=== PATIENT | female | born 1995 | race Caucasian/White ===

== ENCOUNTER 2018-10-04 15:06 | Inpatient (IN) | payer OTHER, BC ==
[2018-10-04 16:09] LABS: ABS Lymphocytes 1.5 10^3/ul (1.0-4.8); ABS Monocytes 0.7 10^3/ul (0-0.8); ABS Neutrophils 4.7 10^3/ul (1.5-7.7); Eosinophil % 0.5 %; Hematocrit 40 % (35-47); Hemoglobin 13.7 g/dL (12.0-16.0); Lymphocyte % 21.9 %; Mean Corpuscular HGB Conc 34 g/dL (31-36); Mean Corpuscular Hemoglobin 29 pg (27-31); Mean Corpuscular Volume 84 fL (80-97); Mean Platelet Volume 7.3 fL (7.4-10.4); Nucleated Red Blood Cells % 0.1; Platelet Count 364 10^3/uL (150-450); Red Blood Count 4.79 10^6 /uL (3.70-4.87); Red Cell Distribution Width 14 % (10-15)
[2018-10-04 16:34] LABS: ALT 13 U/L (7-52); AST 12 U/L (13-39); Albumin 4.4 g/dL (3.2-5.2); Albumin/Globulin Ratio 1.3 (1-3); Alkaline Phosphatase 80 U/L (34-104); Anion Gap 8 mmol/L (2-11); Blood Urea Nitrogen 8 mg/dL (6-24); CO2 Carbon Dioxide 24 mmol/L (22-32); Calcium 9.7 mg/dL (8.6-10.3); Chloride 104 mmol/L (101-111); EGFR African American 107.6 (>60); EGFR Non-African American 88.9 (>60); Globulin 3.4 g/dL (2-4); Glucose 89 mg/dL (70-100); Potassium 4.1 mmol/L (3.5-5.0); Sodium 136 mmol/L (135-145); Total Protein 7.8 g/dL (6.4-8.9)
[2018-10-04 16:39] LABS: Urine Appearance Cloudy; Urine Bacteria 1+ (Absent); Urine Bilirubin Negative (Negative); Urine Blood Negative (Negative); Urine Color Amber; Urine Glucose Negative (Negative); Urine Ketones Trace (Negative); Urine Nitrite Negative (Negative); Urine Protein Negative (Negative); Urine Red Blood Cell 2+(6-10/hpf) (Absent); Urine Specific Gravity 1.028 (1.010-1.030); Urine Squamous Epithelial Cell Present (Absent); Urine Urobilinogen Negative (Negative); Urine White Blood Cell 2+(11-20/hpf) (Absent)
--- NOTE | 2018-10-04 16:40 | ED ---
Psychiatric Complaint - HPI Summary HPI Summary: This patient is a 23 year old F presenting to [facility] with a chief complaint of suicide ideation since 2 weeks ago. Patient came to the ED because her therapist said she should come to ED due to having suicidal thoughts. She states that she tried to cut herself 8 months ago. She notes that she has not felt stable for a couple of weeks and has been in and out of hospitals for her whole life. She was last admitted to psychiatric unit as an adolescent. Patient does not have any family or friends in the area. The patient rates the pain 0/ 10 in severity. Symptoms aggravated by nothing. Symptoms alleviated by nothing. Patient denies any fever, chills, erythema of eyes, sore throat, CP, SOB, cough , abdominal pain, N/V, dysuria, hematuria, myalgia, edema, rash, or dizzines. Patient does not do drugs or drink alcohol. Patient takes Klonopin, Vraylar, Prozac, Junel for control, Spironolactone. Patient takes melatonin and Benadryl to sleep. - History Of Current Complaint Chief Complaint: EDSuicidal Time Seen by Provider: 10/04/18 15:30 Hx Obtained From: Patient Onset/Duration: Sudden Onset, Lasting Weeks - 2, Still Present Timing: Weeks - 2 Character: Depressed Aggravating Factor(s): Nothing Alleviating Factor(s): Nothing Has Suicidal: Reports: Thoughts, Demonstrates Gesture - attempted to cut herself 8 months ago - Allergies/Home Medications Allergies/Adverse Reactions: Allergies Allergy/AdvReac Type Severity Reaction Status Date / Time amoxicillin Allergy Unknown Verified 10/04/18 15:28 Reaction Details azithromycin Allergy Unknown Verified 10/04/18 15:28 Reaction Details clavulanic acid Allergy Unknown Verified 10/04/18 15:28 [From Augmentin] Reaction Details dog dander Allergy Unknown Verified 10/04/18 15:28 Reaction Details pine nut Allergy Unknown Verified 10/04/18 15:28 Reaction Details cats Allergy Unknown Uncoded 07/25/18 14:41 Reaction Details lavander Allergy Unknown Uncoded 07/25/18 14:41 Reaction Details Home Medications: Home Medications Cariprazine (NF) [Vraylar (Nf)] 3 mg PO DAILY 10/04/18 [History Confirmed ] Norethindrone/Eth Est 1.5/30NF [Junel 1.5/30 (NF)] 1 tab PO DAILY 10/04/18 [ History Confirmed 10/04/18] PMH/Surg Hx/FS Hx/Imm Hx Previously Healthy: No Endocrine/Hematology History: Denies: Hx Diabetes Cardiovascular History: Denies: Hx Hypertension History: Denies: Hx Renal Disease Sensory History: Denies: Hx Deafness EENT History: Denies: Hx Deafness Psychiatric History: Reports: Hx Suicide Attempt - attempted to cut herself 8 months ago - Surgical History Surgical History: None Infectious Disease History: No Infectious Disease History: Denies: Traveled Outside the [place] in Last 30 Days - Family History Known Family History: Positive: Cardiac Disease - mother has arrhythmias - Social History Alcohol Use: None Hx Substance Use: No Substance Use Type: Reports: None Hx Tobacco Use: No Smoking Status (MU): Never Smoked Tobacco Do You Chew or Dip Tobacco: No Have You Chewed or Dipped Tobacco in the LAST YEAR: No Have You Smoked in the Last Year: No Review of Systems Negative: Fever, Chills Negative: Erythema Negative: Sore Throat Negative: Chest Pain Negative: Shortness Of Breath, Cough Negative: Abdominal Pain, Vomiting, Nausea Negative: dysuria, hematuria Negative: Myalgia, Edema Negative: Rash Neurological: Other - negative - dizziness Psychological: Other - positive - suicidal thoughts All Other Systems Reviewed And Are Negative: Yes Physical Exam - Summary Physical Exam Summary: Constitutional: Well-developed, Well-nourished, Alert. (-) Distressed Skin: Old superficial abrasions to both wrists, warm, Dry HENT: Normocephalic; Atraumatic Eyes: Conjunctiva normal Neck: Musculoskeletal ROM normal neck. (-) JVD, (-) Stridor, (-) Tracheal deviation Cardio: Rhythm regular, rate normal, Heart sounds normal; Intact distal pulses; The pedal pulses are 2+ and symmetric. Radial pulses are 2+ and symmetric. (-) Murmur Pulmonary/Chest wall: Effort normal. (-) Respiratory distress, (-) Wheezes, (-) Rales Abd: Soft, (-) tenderness, (-) Distension, (-) Guarding, (-) Rebound Musculoskeletal: (-) Edema Lymph: (-) Cervical adenopathy Neuro: Alert, Oriented x3 Psych: Mood and affect Normal Triage Information Reviewed: Yes Vital Signs On Initial Exam: Initial Vitals Temp Pulse Resp BP Pulse Ox 98.1 F 97 16 129/81 98 10/04/18 15:25 10/04/18 15:25 10/04/18 15:25 10/04/18 15:25 10/04/18 15:25 Vital Signs Reviewed: Yes Diagnostics - Vital Signs Vital Signs Temp Pulse Resp BP Pulse Ox 10/04/18 15:25 98.1 F 97 16 129/81 98 - Laboratory Lab Results: Lab Results 10/04/18 Range/Units 16:00 WBC 7.0 (3.5-10.8) 10^3/uL RBC 4.79 (3.70-4.87) 10^6 /uL Hgb 13.7 (12.0-16.0) g/dL Hct 40 (35-47) % MCV 84 (80-97) fL MCH 29 (27-31) pg MCHC 34 (31-36) g/dL RDW 14 (10-15) % Plt Count 364 (150-450) 10^3/uL MPV 7.3 L (7.4-10.4) fL Neut % (Auto) 67.4 % Lymph % (Auto) 21.9 % [place] % (Auto) 9.9 % Eos % (Auto) 0.5 % Baso % (Auto) 0.3 % Absolute Neuts (auto) 4.7 (1.5-7.7) 10^3/ul Absolute Lymphs (auto) 1.5 (1.0-4.8) 10^3/ul Absolute Monos (auto) 0.7 (0-0.8) 10^3/ul Absolute Eos (auto) 0.0 (0-0.6) 10^3/ul Absolute Basos (auto) 0.0 (0-0.2) 10^3/ul Absolute Nucleated RBC 0.0 10^3/ul Nucleated RBC % 0.1 Result Diagrams: 10/04/18 16:00 10/04/18 16:00 Lab Statement: Any lab studies that have been ordered have been reviewed, and results considered in the medical decision making process. Re-Evaluation - Re-Evaluation First Eval Re-Evaluation Time: 15:40 Comment: patient is clear for mental reeval Course/Dx - Course Course Of Treatment: This patient is a 23 year old F presenting to [facility] with a chief complaint of suicide since 2 weeks ago. Patient came to the ED because her therapist said she should come to ED due to having suicidal thoughts. She states that she tried to cut herself 8 months ago. She notes that she has not felt stable for a couple of weeks and has been in and out of hospital for her whole life. She was last admitted to the hospital as an adolescent. Patient does not have any family or friends in the area. The patient rates the pain 0/ 10 in severity. Symptoms aggravated by nothing. Symptoms alleviated by nothing. Patient denies any fever, chills, erythema of eyes, sore throat, CP, SOB, cough , abdominal pain, N/V, dysuria, hematuria, myalgia, edema, rash, or dizzines. Patient does not do drugs or drink alcohol. Patient takes Klonopin, Vraylar, Prozac, Junel for control, Spironolactone. Patient takes melatonin and Benadryl to sleep. Physical exam shows old superficial abrasions to both wrists. Lab results show MPV 7.3, AST 12, urine ketones trace A, Ur leukocyte esterase 2+ A, urine WBC (auto) 2+ A, urine RBC (auto) 2+ A, Ur squamous epith cells present A, urine bacteria 1+ A. During the ED course, the patient was given Bactrim. Final diagnosis is suicidal ideation. Patient's case reviewed by [facility] worker reports at 1841 patient will be admitted to [facility] psych. - Differential Dx/Clinical Impression Provider Diagnosis: Suicidal ideation - Physician Notifications Discussed Care Of Patient With: Butch Baca Time Discussed With Above Provider: 18:41 Instructed by Provider To: Other - Patient's case reviewed by [facility] worker reports at 1841 patient will be admitted to [facility] psych. Discharge - Sign-Out/Discharge Documenting (check all that apply): Patient Departure - admit All imaging exams completed and their final reports reviewed: No Studies - Discharge Plan Condition: Stable Disposition: PSYCHIATRIC FACILITY-[facility] - Attestation Statements Document Initiated by Scribe: Yes Documenting Scribe: Anderson Cox Provider For Whom Scribe is Documenting (Include Credential): Dr. Mike Desai MD Scribe Attestation: IAnderson and Nick Cox, scribed for Dr. Mike Desai MD on 10/04/18 at 1924. Status of Scribe Document: Ready
[2018-10-04 16:41] LABS: Acetaminophen < 15 mcg/mL; Alcohol < 10 mg/dL (<10); Salicylate < 2.50 mg/dL (<30)
[2018-10-04 16:56] LABS: TSH (Thyroid Stimulating Horm) 1.44 mcIU/mL (0.34-5.60)
[2018-10-04 17:04] LABS: Urine Benzodiazepine Screen None Detected (None Detect); Urine Opiates Screen None Detected (None Detect)
[2018-10-04] MEDS: Sulfamethox/Trimethoprim DS 800/160* TAB PO ONE ×2 (21:32→22:06)
[2018-10-04] MEDS ORDERED: Al Hydrox/Mg Hydrox/Simet LIQ* 30 ML UDC PO PRN (22:02)
[2018-10-04] MEDS: Acetaminophen TAB* 325 MG PO PRN (22:33)
[2018-10-04] MEDS: clonazePAM TAB(*) 0.5 MG PO PRN (22:33)
[2018-10-05] MEDS ORDERED: Albuterol HFA INHALER* 8 gm MDI INH PRN (00:16)
[2018-10-05] MEDS: Acetaminophen TAB* 325 MG PO PRN ×2 (04:25→12:35)
[2018-10-05] MEDS: Vitamin THERAPEUTIC TAB PO SCH (12:32)
[2018-10-05] MEDS: clonazePAM TAB(*) 0.5 MG PO PRN (12:34)
[2018-10-05] MEDS ORDERED: diPHENhydraMINE PO* 50 MG PO PRN (15:41)
[2018-10-05] MEDS ORDERED: Melatonin 3 MG TAB PO PRN (15:41)
[2018-10-05 17:21] LABS: HCG Pregnancy < 0.60 mIU/mL
[2018-10-05] MEDS ORDERED: ARIPiprazole TAB* 5 MG PO ONE (20:00)
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
[2018-10-05] MEDS: clonazePAM TAB(*) 0.5 MG PO SCH (20:41)
[2018-10-05] MEDS ORDERED: Spironolactone TAB* 25 MG PO SCH (21:00)
[2018-10-05] MEDS ORDERED: CARIPRAZINE 3 MG PO SCH (21:00)
[2018-10-05] MEDS ORDERED: Mirtazapine TAB* 15 MG PO SCH (21:00)
[2018-10-05] MEDS ORDERED: Norgestrel/Ethinyl Estrad TAB* 0.5 MG/0.05 MG PO SCH (21:00)
[2018-10-06 08:42] VITALS: BP 122/71
[2018-10-06 08:47] LABS: HDL Cholesterol 41.1 mg/dL
[2018-10-06] MEDS ORDERED: FLUoxetine CAP* 20 MG PO SCH (09:00)
[2018-10-06] MEDS: clonazePAM TAB(*) 0.5 MG PO SCH (09:20)
[2018-10-06] MEDS: Vitamin THERAPEUTIC TAB PO SCH (09:21)
--- NOTE | 2018-10-06 10:56 | DCNOTE ---
Subjective - Subjective Service Types: 32026 Hosp DC Day Mgmt simple under 30 min Discharge Date: 10/06/18 Subjective: Patient is euthymic with bright affect. She is easy to engage in conversation. She reports improved sleep and mood. 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 She states she is hoping to gain licensure to improve employability. Patient is thorough in her goals for graduate education in anthropology and specific programs she is planning to apply to. She reports plan to sit for GRE in december. Patient denies SI or passive wish. Objective - General Observations Appearance: Well Groomed Stature: Overweight Posture: WNL Eye Contact: Average Behavior/Activity: WNL - Interaction Observations Attitude Towards Examiner: Cooperative Stated Mood: Euthymic Affect: Full Speech Pattern/Tone: Clear, Appropriate, Normal Volume Thought Process: Coherent, Goal Directed Perception: WNL Thought Content: WNL Hallucination Type: Denies Delusion Type: Denies - Cognitive Function Orientation: A&O x 4 Level of Consciousness: Alert Cognition: WNL Estimated Intelligence: Normal Insight: WNL Judgment Within Normal Limits: Yes - Medication Compliance Cooperative with Inpatient Medication Regimen: Yes - Group Participation Participates in Group Activities: Partial DC Assessment - Assessment Clinical Impression: 23yo female with extensive psychiatric history since age 7, working diagnoses of schizoaffective d/o and OCD, who presented to ED after [facility] appt due to SI with plan. She reports med change from aripiprazole to vraylar approx one month ago resulting in improvement in energy and wt gain but experiencing poor sleep and restless legs. Patient agreed to trial mirtazapine and reports much improved sleep. She denies suicidal ideation, exhibits future orientation and requests discharge. Merits Inpatient Hospitalization: No Clear for Discharge: Adequate Clinical Respons, Acceptable Safety Profile Inpatient DSM-V Dx: F25.1 Discharge Planning - Discharge Planning Discharge Plan: Outpatient Follow Up Outpatient Program: [facility] Recommendations for Continuing Care: Medication Management, Psychotherapy, Routine Metabolic Monitoring, Primary Care Followup Medications: Current Medications Albuterol (Ventolin Hfa Inhaler*) 2 puff INH Q4H PRN PRN Reason: WHEEZING Clonazepam (Klonopin Tab(*)) 0.5 mg PO TID [place] Last Admin: 10/06/18 09:20 Dose: 0.5 mg Diphenhydramine HCl (Benadryl Po*) 50 mg PO BEDTIME PRN PRN Reason: INSOMNIA Last Admin: 10/05/18 20:48 Dose: 50 mg Fluoxetine HCl (Prozac Cap*) 40 mg PO DAILY [place] Last Admin: 10/06/18 09:21 Dose: 40 mg Melatonin (Melatonin) 9 mg PO BEDTIME PRN PRN Reason: INSOMNIA Last Admin: 10/05/18 20:48 Dose: 9 mg Mirtazapine (Remeron Tab*) 15 mg PO BEDTIME [place] Last Admin: 10/05/18 20:42 Dose: 15 mg Spironolactone (Aldactone Tab*) 100 mg PO BEDTIME [place] Last Admin: 10/05/18 20:42 Dose: 100 mg BCP (Junel) 1 tab po daily Discharge Planning: Prescriptions provided for discharge [x] Yes [] No Follow up care details as per social work arrangements: [facility]- Dr Romero and Jerome Schroeder [facility] Patient response to discharge plan: [x] eager for discharge [x] agreeable with discharge plan [] ambivalent about discharge [] disagrees with discharge today
--- NOTE | 2018-10-06 15:51 | DS ---
CC: [facility]; Dr. Marla English * DISCHARGE SUMMARY: DATE OF ADMISSION: 10/04/18. DATE OF DISCHARGE: 10/06/18. SUPERVISING PSYCHIATRIST: Dr. Rodolfo Goldsmith.* (DICTATED BY BENJAMIN BROWN NP) DISCHARGE DIAGNOSES: Schizoaffective disorder, depressed type; obsessive compulsive disorder. CONDITION AT THE TIME OF DISCHARGE: Improved. The patient is euthymic with bright affect. She denies suicidal ideation or passive wish. She is well related and reports improvement in sleep and mood. She reports desire to be discharged today in order to complete a rn infusion exam tomorrow. She states she is hoping to gain licensure in order to improve her employability. The patient is thorough in her goals for graduate education in anthropology. She is goal oriented and future focused. She denies SI or passive wish. The patient is discharged to home. MENTAL STATUS EXAM: Katerine is a 23-year-old white female, obese, casually dressed in jeans and a T-shirt. She has short dark hair and large round glasses. She is adequately groomed and looks stated age. She is alert and oriented x3. Eye contact is good. Speech is soft, articulate, and spontaneous. Mood is euthymic with bright affect. Thought process is logical, coherent, and goal directed. Thought content is negative for suicidal ideation, passive wish. She denies auditory or visual hallucinations. Insight and judgment are good. Impulse control is good in this setting. Fund of knowledge is excellent. She appears to have at least average intellect by virtue of educational attainment and vocabulary. INSTRUCTIONS GIVEN TO THE PATIENT: A. Medications: Mirtazapine 15 mg p.o. nightly was added and she tolerated this well. The rest of her medications are unchanged and as follows: 1. Albuterol 2 puffs q.4 hour p.r.n. wheezing. 2. Vraylar 3 mg p.o. daily. 3. Clonazepam 0.5 mg p.o. t.i.d. 4. Diphenhydramine p.o. q.h.s. p.r.n. insomnia. 5. Fluoxetine 40 mg p.o. daily. 6. Melatonin 9 mg p.o. q.h.s. p.r.n. insomnia. 7. Junel control pill 1 tab daily. 8. Spironolactone 100 mg p.o. q.h.s. The patient's new medication mirtazapine was electronically prescribed to [facility]. She declines need for refills on her other medications. B. Diet: Regular. C. Activity: Ambulation as tolerated. Tobacco cessation is not applicable. There are no pending labs or diagnostic studies. D. Followup care: The patient will resume care at [facility] with her therapist Jerome and Dr. Romero for Psychiatry. She can follow up with [facility] as needed. E. Substance use followup is not applicable. HOSPITAL COURSE: Part A: Reason for admission: The patient presented to the emergency department after an appointment with her outpatient therapist at [facility] due to suicidal ideation and plan to overdose on prescribed medication. Chief complaint: "I just don't want to feel like dying all the time." History of Present Illness: Katerine is a 23-year-old white female, domiciled, employed, single, never without children, who presented to the emergency department after an appointment with her outpatient therapist at [facility]. Katerine is living in a cooperative household on [address]. She reports increased fatigue, poor sleep, worsening mood with thoughts of suicide and plan to overdose. The patient has an extensive psychiatric history including multiple hospitalizations since her first at age 11. She is currently a client of [facility], sees Jerome Schroeder and Dr. Romero. According to EMR, she has a diagnosis of schizoaffective disorder and OCD. The patient reports recent med change approximately 1 month ago. She states that she has had worsening sleep since changing from aripiprazole to Vraylar. She reports mild improvement in fatigue since the medication change. She states that she has had a long history of poor sleep and fatigue. She endorses restless legs related to Vraylar. She reports the history of cutting since she was 12 years old, but has not done so for the last 8 months. She states that she has difficulty with social interactions, making and keeping friendships. She has a history of delusions of receiving prophecies from God. She denies auditory or visual hallucinations. She states that she typically does not experience delusional thinking when taking antipsychotic medications. She endorses hypervigilance, but that clonazepam is helpful for this. She has a history of OCD. She states she most recently has a fear of contamination and odd numbers. According to prior H and P, as a teenager, she had significant rituals especially at bedtime including taking up to 3 hours before she can fall asleep. Currently, the patient states that she is working 2 part-time jobs, one of which she does not like, but she has interviewed for others. She is also studying for the GRE exam. She denies having much enjoyable activities. She states she knits and spends much time alone. She has dinner with roommates, but otherwise has not made friendship connections with them. During the interview, the patient requested to talk about medication changes. We started to discuss various options including lithium to target suicidal ideation. The patient became tearful, paranoid, and states "I don't trust you." She states that she wanted to speak with her parents before deciding on medications and loan underwriter encouraged her to do so. Per the patient consent, I collaborated with outpatient psychiatrist, Dr. Romero. I met with the patient again after confirming medications available in the pharmacy, specifically control pill for PCOS. The patient inquired what I had decided to do for medications and was informed of collaborative decision making including obtaining informed consent. She appeared to have alleviated anxiety related to this. Laboratory data while in the emergency room: CBC unremarkable. Chemistry normal. TSH normal. Hemoglobin A1c normal at 5.5, cholesterol high at 223. Urinalysis negative microbiology. Urine drug screen negative. Part B: Psychiatric treatment rendered: The patient was admitted to the adult behavioral services unit on a voluntary status. Code status is full. She was placed on 15-minute checks for safety and encouraged to participate in supportive milieu, individual sessions with staff, and psychoeducational groups. The patient agreed to try on mirtazapine for her sleep and restless legs. She tolerated this well and reported much improvement in sleep. She submitted a 72-hour notice citing preference to work in the outpatient setting. Collateral information was obtained by Social Work from her parents. The patient's parents were supportive of discharge. The patient completed the safety plan. Due to obligation to treat in a less restrictive setting, the treatment team agreed upon discharge. The patient was discharged to home and utilized [employer] for her own transportation. Katerine is a very pleasant young woman with severe and persistent mental illness. She has very many strengths including family support and educational goals. She is a pleasure to work with and she reported that she would return should symptoms worsen. BENJAMIN BROWN, JUDD [id number]/CPS #: [id number]
== END 2018-10-06 13:00 | disposition home or self-care (01) | DRG 750 ==
LOC: ED 15:06 → BSU 18:03
PROVIDERS: ADMIT Psychiatry & Neurology Psychiatry; ATTEND Psychiatry & Neurology Psychiatry
DX: F25.1 Schizoaffective disorder, depressive type (principal); R45.851 Suicidal ideations; E28.2 Polycystic ovarian syndrome; G47.9 Sleep disorder, unspecified; G25.81 Restless legs syndrome; F42.9 Obsessive-compulsive disorder, unspecified; E66.9 Obesity, unspecified; Z68.39 Body mass index [BMI] 39.0-39.9, adult; Z91.5 Personal history of self-harm; Z72.89 Other problems related to lifestyle; Z88.0 Allergy status to penicillin; Z91.018 Allergy to other foods; Z91.048 Other nonmedicinal substance allergy status; Z81.8 Family history of other mental and behavioral disorders
CPT/HCPCS: 36415; 80053; 80061; 80307; 80320; 80329; 81003; 81015; 83036; 84443; 84702; 85025; 87086; 99222; 99238; 99284; A9270-GY; G0480